=== PATIENT | female | born 1965 | race Two or more races ===

== ENCOUNTER 2016-11-17 16:20 | Emergency (ER) | payer MEDICAID ==
--- NOTE | 2016-11-17 17:12 | ED Physician Chart ---
Chief Complaint/HPI - Patient Information Date Seen:: 11/17/16 Time Seen:: 16:45 Chief Complaint:: R knee pain for about 2 hours. History of Present Illness:: Pt came in by private auto because of R knee pain after she twisted it while she was pushing a shopping cart, and she slipped because the floor was wet. Pt did not fall or sustained any other notable injuries. Pt remains ambulatory. Her R knee pain can be aggravated with wt bearing activities. Allergies:: Allergies Allergy/AdvReac Type Severity Reaction Status Date / Time darvocet Allergy Mild Uncoded 03/24/15 23:32 Vitals:: Vital Signs - 8 hr 11/17/16 16:26 Temp 97.8 F HR 81 RR 16 BP 113/76 O2 Sat % 96 Historian:: Patient Family MD/PCP:: Dr. Tan LMP:: Hysterectomy in 2004 Review:: Nurse's Note Reviewed Review of Systems - Review of Systems General/Constitutional: No fever, No weight loss, No weakness, No edema Skin: No skin lesions, No rash, No bruising Head: No headache, No light-headedness Eyes: No loss of vision, No pain, No diplopia ENT: No earache, No nasal drainage, No sore throat, No tinnitus Neck: No neck pain, No swelling, No stiffness Cardio Vascular: No chest pain, No palpitations, No edema Pulmonary: No SOB, No cough, No sputum, No wheezing GI: No nausea, No vomiting, No diarrhea, No pain G/U: No dysuria, No frequency, No hematuria Timber Management Specialist: No vaginal discharge, No abnormal vaginal bleed Musculoskeletal: Bone or joint pain (R knee pain) Endocrine: No polyuria, No polydipsia Psychiatric: No prior psych history Hematopoietic: No bruising, No lymphadenopathy Allergic/Immuno: No urticaria, No angioedema Neurological: No syncope, No focal symptoms, No weakness, No paresthesia, No headache, No dizziness, No confusion Past Medical History - Past Medical History Past Medical History: Dyslipidemia, Thyroid disorder Family History: Heart disease (parents), Diabetes Melitus (parents), HTN ( parents.) Social History: Non Smoker, No Alcohol, No Drug Use, Legally, Other ( lives with her sister.) Employment:: unemployed. 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 Head: Atraumatic Skin: Nl inspection, No rash, No skin lesions, No ecchymosis, Well hydrated, No lymphadenopathy ENMT: External ears, nose nl, Nasal exam nl, Lips, teeth, gums nl, Oropharynx nl Neck: Nontender, Full ROM w/o pain, No nuchal rigidity, No mass, No stridor Respiratory: Nl effort/Exclusion, Clear to Auscultation, No Wheeze/Rhonchi/Rales Cardio Vascular: RRR, No murmur, gallop, rubs GI: No tenderness/rebounding/guarding, No organomegaly, Normal BS's, Nondistended Other GI comments:: Abdomen is obese but soft. Other Extremities comments:: R knee: Tenderness at anterior aspect with mild swelling. No open wound, erythema, ecchymosis or crepitus. There is a well healed longitudinal surgical scar noticed at midline at anterior aspect. ROM is decreased and is not well assessed due to pain. Negative Drawer's sign. Stable MCL and LCL. No detectable motor/sensory/vascular deficit. Good distal pulse. Neuro/Psych: Alert/oriented (oriented x 3), Judgement/insight normal, Mood normal, Normal gait, No focal deficits Labs/Radiology/EKG Results - Radiology Results Results: R knee X-ray (3v): Based on my interpretation, prosthesis in place. No acute fx or subluxation. Official report is pending. ED Septic Shock - . Is Septic Shock (SBP<90, OR Lactate>4 mmol\L) present?: No - <6hrs of presentation: Vital Signs: Vital Signs - 8 hr 11/17/16 16:26 Temp 97.8 F HR 81 RR 16 BP 113/76 O2 Sat % 96 Reassessment (Disposition) - Reassessment Reassessment:: 1720 Pain medication was offered but pt declined because her pain is tolerable. 185 Pt remains stable. R knee X-ray just became available. Radiological findings have been reviewed with pt. Pt requests to go home now. Aftercare instructions have been given. Reassessment Condition:: Improved - Diagnosis Diagnosis:: R knee sprain, stable. - Aftercare/Follow up Instructions Aftercare/Follow-Up Instructions:: Refer to Discharge Instructions Notes:: Wear R knee immobilizer as directed. Avoid wt bearing on R knee. Use crutches. May take Tylenol 500 mg tab one tab po q6h prn pain. Sprain care instructions given. F/U with PCP Dr. Tan in 1-2 days for recheck. Return to ER immediately if condition worsens or if any further questions/problems. Medication Prescribed:: None - Patient Disposition Discharge/Transfer:: Home Time:: 19:05 Condition at Disposition:: Stable, Improved ED Discharge Plan - Patient Disposition Admit/Discharge/Transfer: PT DISCHARGED HOME Condition at Disposition: Stable Instructions: Knee Sprain, [id number], Knee Immobilization
--- NOTE | 2016-11-18 08:23 | Diagnostic Imaging Report ---
Exam: Right knee HISTORY: Pain Findings: Multiple views of the right knee joint reviewed. The study demonstrates satisfactory appearance of the total right knee prosthesis. There is no evidence of fracture dislocation of subluxation. There is no evidence for joint effusion IMPRESSION: Satisfactory positioning of total right knee prosthesis.
== END 2016-11-17 19:16 | disposition home or self-care (01) ==
LOC: ER 16:20
DX: S83.91XA Sprain of unspecified site of right knee, initial encounter (principal); X50.1XXA Overexertion from prolonged static or awkward postures, initial encounter; Y93.89 Activity, other specified; Y92.513 Shop (commercial) as the place of occurrence of the external cause; Y99.8 Other external cause status; E78.5 Hyperlipidemia, unspecified; E07.9 Disorder of thyroid, unspecified
CPT/HCPCS: 29505; 73562-TC-RT; Z7502